=== PATIENT | male | born 2000 | race Caucasian/White ===

== ENCOUNTER 2018-07-21 10:46 | Emergency (ER) | payer OTHER ==
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
[2018-07-21] MEDS ORDERED: Bacitracin Zinc 1 Packet ONE (12:00)
== END 2018-07-21 12:10 | disposition home or self-care (01) ==
LOC: ERS 10:46
DX: S00.01XA Abrasion of scalp, initial encounter (principal); W22.8XXA Striking against or struck by other objects, initial encounter
CPT/HCPCS: 70450